=== PATIENT | female | born 1965 | race Caucasian/White ===

== ENCOUNTER 2022-02-09 11:15 | Outpatient (REF) | payer OTHER, SELFPAY ==
--- NOTE | ~2022-02-09 | XR_ITS ---
EXAMINATION: 1. RADIOGRAPHS RIGHT HAND 2. RADIOGRAPHS LEFT HAND 3. RADIOGRAPHS RIGHT FOOT 4. RADIOGRAPHS LEFT FOOT CLINICAL INFORMATION: Chronic bilateral hand and foot pain COMPARISON: None TECHNIQUE: 3 views of each hand and 3 views of each foot were obtained FINDINGS: Right hand: Visualized portions of the distal radius and ulna demonstrate no fracture. Carpal rows are well aligned. No carpal bone fracture. Severe degenerative changes of the first carpal metacarpal joint with prominent hypertrophic changes and mild subluxation of the first metacarpal. Mild to moderate degenerative changes of scattered IP joints. No focal soft tissue swelling. No radiopaque foreign body. Left hand: Visualized portions of the distal radius and ulna demonstrate no fracture. Carpal rows are well aligned. No carpal bone fracture. Mild to moderate degenerative changes of the first carpal metacarpal joint with mild subluxation of the first metacarpal. There are mild degenerative changes of scattered IP joints. No focal soft tissue swelling of the left hand. No radiopaque foreign body. Right foot: Bones of the midfoot are well aligned. No tarsal, metatarsal or phalangeal fracture. Moderate to severe hallux valgus deformity of the first toe with mild associated degenerative changes. Mild degenerative changes of scattered IP joints. No focal soft tissue swelling. No gross ankle joint effusion. Left foot: Bones of the midfoot are well aligned. No tarsal, metatarsal or phalangeal fracture. Severe hallux valgus deformity of the first toe with lateral subluxation of the first proximal phalanx in relation to the first metatarsal head. There is partial lateral subluxation of the second and third proximal phalanxes on their respective metatarsal heads. There is no gross focal soft tissue swelling. Small plantar calcaneal enthesophyte. No gross ankle joint effusion. XR/XR foot RT min 3V IMPRESSION: 1. 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 2. Mild to moderate degenerative changes of the left first carpal metacarpal joint. 3. Severe hallux valgus deformity of the left first toe with lateral subluxation of the first proximal phalanx. 4. Moderate to severe hallux valgus deformity of the first right toe with mild associated degenerative changes.
[2022-02-09 13:33] LABS: MANUAL DIFF FLAG NO
[2022-02-09 13:36] LABS: Basophils Percent Auto 0.6 % (0-2); Eosinophils Absolute Auto 0.3 X10*3/uL (0.0-0.4); Eosinophils Percent Auto 6.3 % (0-4); Hematocrit 37.6 % (37.0-47.0); Hemoglobin 12.5 g/dl (12.0-16.0); Imm Gran Abs Auto 0.01 X10*3/uL (0.00-0.03); Imm Gran Pct Auto 0.2 % (0.0-0.4); Lymphocytes Absolute Auto 1.4 X10*3/uL (1.2-4.9); Lymphocytes Percent Auto 28.2 % (20-40); Mean Corpuscular HGB Conc 33.2 g/dl (31.0-35.0); Mean Corpuscular Hemoglobin 30.4 pg (27.0-33.0); Mean Corpuscular Volume 91.5 fL (80.0-98.0); Mean Platelet Volume 10.3 fL (9.4-12.3); Monocytes Absolute Auto 0.5 X10*3/uL (0.1-1.2); Monocytes Percent Auto 9.5 % (2-11); Neutrophils Absolute Auto 2.7 x10*3/uL (2.0-8.3); Neutrophils Percent Auto 55.2 % (45-73); Platelet Count 263 X10*3/uL (160-400); Red Blood Count 4.11 X10*6/uL (4.20-5.50)
[2022-02-09 14:08] LABS: Alanine Aminotransferase 20 U/L (0-31); Albumin Level 4.5 g/dL (3.5-5.0); Alkaline Phosphatase 59 U/L (39-117); Anion Gap 12 (12-20); Aspartate Amino Transferase 27 U/L (5-31); Blood Urea Nitrogen 14 mg/dL (9-16); Calcium 9.6 mg/dL (8.4-10.2); Carbon Dioxide 25 mmol/L (22-29); Chloride 105 mmol/L (96-108); Cholesterol 205 mg/dL; Estimated Glomerular Filt Rate > 60; Glucose Fasting 96 mg/dL (60-99); HDL Cholesterol 90 mg/dL; LDL Cholesterol Calculated 101 mg/dl; Potassium 4.4 mmol/L (3.3-5.1); Sodium 138 mmol/L (135-145); Triglycerides 74 mg/dL
[2022-02-09 14:14] LABS: Vitamin D 25-OH Total 33.3 ng/mL (>30)
== END 2022-02-09 11:16 | disposition home or self-care (01) ==
LOC: HO.10HDL 11:15
PROVIDERS: PCP Internal Medicine; Visit Provider Internal Medicine
DX: M79.643 Pain in unspecified hand (principal); Z00.00 Encounter for general adult medical examination without abnormal findings; R20.0 Anesthesia of skin; M79.641 Pain in right hand; M79.642 Pain in left hand; M17.0 Bilateral primary osteoarthritis of knee
CPT/HCPCS: 36415; 73130; 73630; 80053; 80061; 82306; 85025

== ENCOUNTER 2022-05-06 12:32 | Outpatient (REF) | payer OTHER, SELFPAY ==
--- NOTE | ~2022-05-06 | MM_ITS ---
EXAMINATION: MM SCREENING DIGITAL BREAST TOMOSYNTHESIS, BILATERAL CLINICAL INFORMATION: Screening. Asymptomatic. No prior breast imaging. Age 56. No known family history breast cancer. The lifetime risk of breast cancer based on the Tyrer-Cuzick Model is 8%. COMPARISON: None (current study represents initial baseline exam). TECHNIQUE: Digital breast tomosynthesis is performed in both the craniocaudal and mediolateral oblique views along with computer-aided detection (CAD). Synthesized 2D images are generated from the tomosynthesis. Additional left MLO view is provided. FINDINGS: There are scattered areas of fibroglandular density (ACR BI-RADS breast composition Category b). There are no significant masses, abnormal calcifications, or other abnormalities. Breast tissue composition borders on heterogeneously dense in the anterior breasts. The axilla and skin contours are unremarkable. MM/MM tomosynthesis screening BI IMPRESSION: No mammographic evidence of malignancy. ASSESSMENT: BI-RADS 1: Negative RECOMMENDATION: Routine annual mammography screening. This patient's information was entered into a reminder system with a target due date for their next mammogram.
--- NOTE | ~2022-05-06 | MM_ITS ---
EXAMINATION: BONE DENSITOMETRY CLINICAL INDICATION: Menopausal. COMPARISON: None (current study represents initial baseline exam). TECHNIQUE: Using a [employer] DXA System (software version: 13.1) manufactured by [employer], dual-energy x-ray absorptiometry was performed of the lumbar spine and left hip. The images are of good technical quality. Summary results are attached. FINDINGS: AP SPINE L1-L4: BMD 1.058 g/cm2, Z-score -0.2, T-score -1.0, normal. LEFT FEMUR, NECK: BMD 0.879 g/cm2, Z-score -0.1, T-score -1.1, osteopenia. LEFT FEMUR, TOTAL: BMD 0.797 g/cm2, Z-score -1.0, T-score -1.7, osteopenia. IDENTIFIED RISK FACTORS: Menopause. HISTORY OF FRACTURE: None listed. MEDICATIONS: None listed. MM/XR DEXA axial skeleton IMPRESSION: 1. DIAGNOSIS: Osteopenia based on the lowest T-score value of -1.7 in the total femur applying World Health Organization criteria. 2. 10-YEAR FRACTURE RISK PREDICTION, FRAX: Major osteoporotic fracture (clinical spine, forearm, hip or shoulder) 6.8%. Hip fracture 0.4%. 3. Treatment Recommendations: NOF guidelines recommend consideration for treatment in postmenopausal women and men age 50 and older presenting with the following: -A hip or vertebral (clinical or morphometric) fracture. -T-score less than or equal to -2.5 at the femoral neck or spine after appropriate evaluation to exclude secondary causes. -Low bone mass at the hip or spine and a 10-year fracture probability by FRAX of greater than or equal to 3% for hip fracture or greater than or equal to 20% for major osteoporotic fracture based on the [place] adapted WHO algorithm. 4. Other Recommendations: All treatment decisions require clinical judgment and consideration of individual patient factors, including patient preferences, comorbidities, previous drug use, risk factors not captured in the FRAX model (e.g. frailty, falls, vitamin D deficiency, increased bone turnover, interval significant decline in bone density) and possible under or overestimation of fracture risk by FRAX. Additional medical evaluation for secondary cause of low bone mineral density may be appropriate. FUTURE SCAN RECOMMENDATION: People with diagnosed cases of osteoporosis or at high risk for fracture should have regular bone mineral density tests. For patients eligible for Medicare, routine testing is allowed once every 2 years. The testing frequency can be increased to one year for patients who have rapidly progressing disease, those who are receiving or discontinuing medical therapy to restore bone mass, or have additional risk factors.
== END 2022-05-06 12:33 | disposition home or self-care (01) ==
LOC: HO.MAMMO 12:32
PROVIDERS: PCP Internal Medicine; Visit Provider Internal Medicine
DX: Z12.31 Encounter for screening mammogram for malignant neoplasm of breast (principal); Z13.820 Encounter for screening for osteoporosis; Z78.0 Asymptomatic menopausal state
CPT/HCPCS: 77063; 77067; 77080